=== PATIENT | female | born 1950 | race Caucasian/White ===

== ENCOUNTER 2018-11-21 09:44 | Emergency (ER) | payer OTHER ==
[2018-11-21 09:56] VITALS: BP 140/74
--- NOTE | 2018-11-21 10:01 | ED Physician Documentation ---
Lower Extremity Problem - HISTORIAN Historian: patient - HPI Stated Complaint: R Foot pain Chief Complaint: Lower Extremity Problem Location of Injury: R foot Onset: hours (5) Timing: still present Duration: intermittent episodes Recent Injury: No (no injury ) Severity: moderate (with standing ) Quality: pain, tenderness. denies: swelling, numbness, tingling Exacerbated By: walking, movement Relieved By: rest Further Comments: yes (she states just in last few hours increasing pain on palmar side of right foot. No injury. She has not taken any OTC meds. She has noticed with rest pain is improved) - ROS CONST: no problems - PAST HX Past History: none PE Risk Factors: hypertension Immunizations: UTD Allergies/Adverse Reactions: Allergies Allergy/AdvReac Type Severity Reaction Status Date / Time carvedilol Allergy Verified 11/21/18 09:57 codeine Allergy Verified 11/21/18 09:57 Home Medications: Ambulatory Orders Medication Instructions Recorded Aspirin [Adrian] 1 tab PO DAILY 11/21/18 Labetalol HCl 1 tab PO DAILY 11/21/18 hydroCHLOROthiazide [Hydrodiuril] 1 tab PO DAILY 11/21/18 - SOCIAL HX Smoking History: cigarettes Alcohol Use: none Drug Use: none - FAMILY HX Family History: none - VITAL SIGNS Vital Signs: Vital Signs Temp Pulse Resp BP Pulse Ox 69 16 140/74 97 11/21/18 11:10 11/21/18 11:10 11/21/18 11:10 11/21/18 11:10 - REVIEWED ASSESSMENTS Nursing Assessment Reviewed: Yes Vitals Reviewed: Yes ED Results Lab/Radiology - Radiology Radiology Impressions: Exam: Right foot. History: Pain. AP, lateral and oblique view of the right foot are submitted. No signs of acute fracture or dislocation is seen. No bony erosions are seen. Spur off the plantar surface of the calcaneus is noted. Impression: Heel spur. Electronically signed on Nov 21, 2018 10:47:57 AM CDT by: Bucky Coulter - Orders Orders: ED Orders Category Date Time Status FOOT 3 VIEWS OR MORE [RAD] Stat Exams 11/21/18 Completed Ketorolac Tromethamine [Toradol] Med 11/21/18 10:55 Discontinued 60 mg IM NOW ONE Lower Extremity Problem - EXAM General Appearance: no distress Foot: right foot: pain (palmar side of foot with palpation ), left foot: non- tender, bilateral foot: normal inspection, normal range of motion, no evidence of injury, N/A: abrasions/lacerations, bone tenderness, deformity, limited range of motion, soft tissue tenderness, swelling Neuro/Tendon: normal sensation, normal motor functions EENT: eye inspection normal, no signs of dehydration RESPIRATORY: no resp distress, chest non-tender, breath sounds normal CVS: reg rate & rhythm, heart sounds normal JOINT: joints nml VASCULAR: no vascular compromise NEURO/PSYCH: oriented X3 SKIN: warm/dry BACK: normal inspection Discharge Clincal Impression: Heel spur Qualifiers: Laterality: right Qualified Code(s): M77.31 - Calcaneal spur, right foot Referrals: Primary Doctor,No [Primary Care Provider] - 2 Days Comments: 1. OTC meds as directed as needed for pain 2. See Dr Paredes for pain 3. Exercises as needed for pain 4. See PCP in 2-4 days 5. Return to ER for any increased concerns Condition: Stable Disposition: 01 HOME, SELF-CARE Decision to Admit: NO Date of Decison to Admit: 11/21/18 Decision Time: 10:59
--- NOTE | 2018-11-21 10:51 | Diagnostic Imaging Report ---
PATIENT MR#: [id number] PATIENT PATIENT NAME: TADEO MCBRIDE DATE OF : 1950 REFERRING PHYSICIAN: Cleo Zarco EXAM DATE: 11/21/2018 ACCESSION NUMBER: [id number] EXAM DESCRIPTION: FOOT 3 VIEWS OR MORE Exam: Right foot. History: Pain. AP, lateral and oblique view of the right foot are submitted. No signs of acute fracture or dislocation is seen. No bony erosions are seen. Spur off the plantar surface of the calcaneus is noted. Impression: Heel spur. Read by: Dr. Bucky Rivera Transcribed by: Transcribed Date: Electronically signed by: Dr. Bucky Rivera Date signed: 11/21/2018 10:50:34 AM
[2018-11-21] MEDS: KETOROLAC TROMETHAMINE 60 MG/2 ML VIAL IM ONE (11:01)
== END 2018-11-21 11:10 | disposition home or self-care (01) ==
LOC: ED 09:44
DX: M77.31 Calcaneal spur, right foot (principal)
CPT/HCPCS: 73630; 96372; 99282; 99284; J1885